=== PATIENT | male | born 1955 | race Caucasian/White ===

== ENCOUNTER → 2025-05-14 11:21 | Outpatient (REF) | payer SELFPAY | LOC: HWRAD 11:21 | PROVIDERS: ATTENDING PHYSICIAN Internal Medicine Geriatric Medicine | DX: Z00.00 Encounter for general adult medical examination without abnormal findings (principal); E55.9 Vitamin D deficiency, unspecified; E78.2 Mixed hyperlipidemia; K21.9 Gastro-esophageal reflux disease without esophagitis; J45.990 Exercise induced bronchospasm; R42 Dizziness and giddiness; R50.9 Fever, unspecified; R05.1 Acute cough; M25.511 Pain in right shoulder; F41.9 Anxiety disorder, unspecified; Z13.89 Encounter for screening for other disorder; R53.82 Chronic fatigue, unspecified | CPT/HCPCS: 75571 ==

== ENCOUNTER 2025-09-13 15:30 | Emergency (ER) | payer OTHER, SELFPAY ==
[2025-09-13 15:36] VITALS: BP 164/95
[2025-09-13 16:07] LABS: Hematocrit 43.8 % (39.0-52.0); Hemoglobin 15.3 g/dL (13.0-18.0); Mean Corp Hgb Conc. 34.9 g/dL (33.0-37.0); Mean Corpuscular Volume 88.3 fL (80.0-94.0); Nucleated Red Blood Cells % 0 % (-); Platelet Count 187 10^3/uL (130-400); Red Cell Dist. Width 11.9 % (11.5-14.5)
[2025-09-13 16:24] LABS: ALT (SGPT) 34 U/L (0-50); AST (SGOT) 36 U/L (17-59); Albumin 4.4 g/dl (3.5-5.0); Alkaline Phosphatase 67 U/L (38-126); Blood Urea Nitrogen 20 mg/dl (9-20); Calcium 9.3 mg/dl (8.4-10.2); Carbon Dioxide 26 mmol/L (22-30); Chloride 103 mmol/L (98-107); Glucose 83 mg/dl (70-99); Potassium 4.3 mmol/L (3.5-5.1); Sodium 137 mmol/L (135-145); Total Protein 6.8 g/dl (6.3-8.2); eGFR > 60.00
[2025-09-13 16:35] LABS: Troponin I 0.023 ng/ml
[2025-09-13 20:28] LABS: Troponin I 0.025 ng/ml
[2025-09-13 21:31] VITALS: BMI 30.9
[2025-09-13 21:32] VITALS: BP 159/89
--- NOTE | 2025-09-13 21:34 | ED.GENMED ---
History of Present Illness
General
Chief Complaint: Chest Pain
Source: patient
Exam Limitations: none
Time Seen by Provider: 09/13/25 21:17
History of Present Illness
History of Present Illness:
See MDM
Past History
Past History
ED Past Medical History: Asthma and Hypercholesterolemia
ED Past Surgical History: Other (ocular sx)
Social History
Tobacco: Non-smoker
Drug: None
Personal:
Living: with family
Phy Exam
Physical Exam
Physical Exam:
See MDM
Scores
Heart Score for Chest Pain Patients
STEMI patient?: No
History: Slightly or Non-Suspicious
ECG: Nonspecific Repolarization
Age: >/= 65 years
Risk Factors: 1 or 2 Risk Factors
Troponin: </= Normal Limit
Heart Score for Chest Pain Patients: 4
Heart Score Risk: 20.3% MACE over next 6 weeks
Course
Orders/Labs/Results
Orders:
Orders
09/13/25 15:31
Electrocardiogram (*1) Urgent
Reason for Study: Chest Pain
EKG- Treatment ONCE
09/13/25 15:49
CMP [Comprehensive Metabolic Panel] Urgent
Complete Blood Count/With Diff Urgent
Troponin I Urgent
09/13/25 19:55
ECG [Electrocardiogram (*1)] Urgent
Reason for Study: Chest Pain
EKG- Treatment ONCE
09/13/25 19:59
Troponin I Urgent
Abnormal Lab Results
09/13/25
15:49
Lymphocytes % 17.7 L %
(20.5-51.1)
09/13/25 15:49
09/13/25 15:49
Vital Signs
Initial and Last Documented VS:
Initial Vital Signs
Temp Pulse Resp BP Pulse Ox
97.9 F 67 16 164/95 96
09/13/25 15:36 09/13/25 15:36 09/13/25 15:36 09/13/25 15:36 09/13/25 15:36
Last Documented Vital Signs
Temp Pulse Resp BP Pulse Ox
97.9 F 59 18 159/89 96
09/13/25 15:36 09/13/25 21:32 09/13/25 21:32 09/13/25 21:32 09/13/25 21:32
MDM/Problems Addressed
Differential Diagnosis Includes:
Note:
CHIEF COMPLAINT(S)
Chest discomfort and elevated blood pressure.
HISTORY OF PRESENT ILLNESS
The patient is a 69-year-old male with a recent history of elevated blood pressure and intermittent chest discomfort described as a pressure sensation. He reports that while in the waiting room today, he experienced symptoms about a third of the
time which resolved upon lying down. He describes the discomfort as random and without a discernible pattern. The patient is physically active, engages in regular exercise, and recently shoveled snow without experiencing pain, although he did feel
dizzy after exertion, which resolved with rest. He noticed fluctuations in his blood pressure readings over the last few days ranging from 170/93 mmHg to 135/80 mmHg.
The patient denies any familial history of heart disease except for his father, who had heart issues at the age of 80. The patient follows a healthy lifestyle and exercises regularly.
PAST MEDICAL AND SURIGICAL HISTORY
The patient recalls seeing a warehouse representative five years ago for sinus surgery-related clearance without any subsequent cardiac issues.
CHRONIC MEDICAL CONDITIONS SIGNIFICANTLY AFFECTING CARE
- Elevated blood pressure.
PHYSICAL EXAM
General: Alert, no acute distress.
Skin: Warm, dry.
Head: Normocephalic, atraumatic
Neck: Appears supple, trachea midline.
Eyes, Ears, Nose, Mouth, and Throat: Moist mucous membranes
Cardiovascular: No signs of cyanosis. Regular rate and rhythm
Respiratory: Respirations are non-labored. Lungs clear
Abdomen: Non-distended
Musculoskeletal: No deformities. No leg edema
Neurological: No focal neurological deficit observed.
Psychiatric: Cooperative, appropriate mood and affect.
EXTERNAL RECORDS REVIEWED
- Previous blood work and EKG completed during this visit were normal.
PLAN
- Patient will be referred to a warehouse representative for follow-up due to the recent episode and elevated blood pressure readings.
- The patient was advised to continue monitoring his blood pressure and to maintain current lifestyle and exercise regimen unless symptoms worsen or become intolerable.
- He was placed on a cardiac callback tracker to expedite follow-up if needed.
DIFFERENTIAL DIAGNOSIS
The Differential Diagnosis includes, in no particular order and is not limited to:
- Musculoskeletal chest pain
- Unstable angina
- Hypertension-related complications
- Aortic stenosis
- Gastroesophageal reflux disease (GERD)
- Anxiety-related chest discomfort
- Myocardial ischemia
- Pericarditis
- Pulmonary embolism
- Costochondritis
SUMMARY OF ENCOUNTER
The patient presented to the emergency department with intermittent chest discomfort and concerns about fluctuating blood pressure. He underwent evaluation including EKGs and laboratory tests, which were normal. The symptoms were not consistent with
acute myocardial infarction. Due to the patients elevated blood pressure readings and history, follow-up with a warehouse representative was advised to ensure continuous monitoring and management.
DISPOSITION
Patient discharged with instructions for outpatient cardiology follow-up.
ASSESSMENT
Intermittent chest discomfort and elevated blood pressure necessitating further cardiology evaluation.
PATIENT EDUCATION AND COUNSELING
The patient was educated on maintaining physical activity and lifestyle management. He was reassured about the normal results from todays workup and advised to follow up with a warehouse representative.
FOLLOW-UP INSTRUCTIONS
- Follow-up with a warehouse representative as soon as possible.
- Continue monitoring blood pressure regularly.
MEDICAL DECISION MAKING
- Number and Complexity of Problems Addressed:
Chronic conditions affecting care include elevated blood pressure.
The differential diagnosis includes musculoskeletal chest pain, unstable angina, hypertension-related complications, aortic stenosis, gastroesophageal reflux disease, anxiety-related chest discomfort, myocardial ischemia, pericarditis, pulmonary
embolism, and costochondritis.
- Data:
Category 1:
- External records reviewed, including recent normal EKG and blood work results.
- Risk:
- Consideration of Admission/Observation: Escalation of care including admission/observation was considered given the complexity and risk of the patients presenting complaint, exam findings, and/or their underlying comorbidities. However, ultimately
I feel the patient is safe for outpatient management with close follow up. Reasoning: Work-up reassuring, does not reveal any acute life/organ threatening processes, patients symptoms well controlled upon reevaluation, reexamination is reassuring,
vitals are stable, patient agreeable with discharge, reliable for follow-up.
DIAGNOSIS
- Chest discomfort, R07.9
- Elevated blood pressure, R03.0
EKG
My independent EKG interpretation is:
- Time of EKG: Not specified
- Rhythm: Sinus bradycardia
- Heart Rate: 58 beats per minute
- [place]: Normal
- [place] Interval: Not specified
- QRS Duration: Not specified
- QT Interval: Not specified
- Abnormalities: None observed (no ST segment changes or T wave inversions)
(Note: Some details like the time, specific intervals, and notable abnormalities were not provided in the java web services developer.)
Disposition:
SUMMARY OF ENCOUNTER
The patient presented to the emergency department with intermittent chest discomfort experienced today. The discomfort appears random and non-exertional. The patient had engaged in shoveling snow a few days before, during which he had no chest pain
but did feel dizzy post-exertion, which resolved with rest. The patient underwent two negative troponin tests and two negative EKGs during a prolonged stay in the emergency department, indicating no acute myocardial infarction. He expressed comfort
with being discharged, and follow-up will be managed through a cardiac callback tracker.
DISPOSITION
Patient discharged with cardiac callback tracking for follow-up.
ASSESSMENT
Intermittent non-exertional chest discomfort with negative cardiac work-up.
PLAN
- Patient advised to continue monitoring and managing symptoms, seeking immediate care if they worsen or become intolerable.
- Referred for cardiology follow-up to ensure continuous monitoring and evaluation.
INDEPENDENT REVIEW OF LABS AND INTERPRETATION OF TESTS
- My independent review of troponin tests: Two negative results indicating no acute myocardial ischemia.
- My independent EKG interpretation: Two negative EKGs indicating no acute ST-T changes or myocardial ischemia.
PATIENT EDUCATION AND COUNSELING
The patient was counseled on symptoms monitoring and reassured with the negative results from current work-up. He was advised to maintain his exercise and healthy lifestyle unless instructed otherwise by his warehouse representative.
FOLLOW-UP INSTRUCTIONS
Follow up with a warehouse representative as soon as possible, and monitor symptoms.
MEDICAL DECISION MAKING
- Complexity of Data Reviewed: Chronic conditions affecting care include elevated blood pressure. Differential Diagnosis includes musculoskeletal chest pain, unstable angina, hypertension-related complications, aortic stenosis, gastroesophageal
reflux disease, anxiety-related chest discomfort, myocardial ischemia, pericarditis, pulmonary embolism, and costochondritis.
- Data:
Category 1:
- Non-emergency department records reviewed.
- External record reviewed show normal outpatient EKG and blood work.
Category 2:
- My independent interpretation of EKG: Sinus bradycardia, normal axis, no abnormalities detected.
- Risk:
- Consideration of Admission/Observation: Escalation of care including admission/observation was considered given the complexity and risk of the patients presenting complaint, exam findings, and their underlying comorbidities. However, ultimately I
feel the patient is safe for outpatient management with close follow up. Reasoning: Work-up reassuring, does not reveal any acute life/organ threatening processes, patients symptoms well controlled upon reevaluation, reexamination is reassuring,
vitals are stable, patient agreeable with discharge, reliable for follow-up.
DIAGNOSIS
- Chest discomfort, R07.9
- Elevated blood pressure, R03.0
*Pulse Oximetry
SaO2: 96
Oxygen Mode of Delivery: Room air
Patient hypoxic: no
*Critical Care Note
Total Time (30-74mins, 75-104mins- exclusive of procedures): Not Applicable
ED Attending Note
-
Portions of this chart may have been created with voice recognition software.� Occasional wrong word or��sound alike� substitutions may have occurred due to the inherent limitations of voice recognition software.
Discharge Plan
Departure
Patient Disposition: Home (Routine Discharge)
Date of Disposition: 09/13/25
Time of Disposition: 21:34
Patient with high blood pressure during this ER visit?: Yes
Discharge Problem:
Chest pain
Instructions: BLOOD PRESSURE, Chest Pain CBC Follow Up
Prescriptions:
No Action
simvastatin 20 MG tablet
20 mg PO QPM
omeprazole 20 MG capsule,delayed release(DR/EC)
20 mg PO QPM
montelukast 10 MG tablet
10 mg PO QPM
oxycodone-acetaminophen 5 MG/325 MG tablet
1 tab PO Q4HPRN PRN (Reason: pain not relieved by ibuprofen) Qty: 15 0RF
albuterol sulfate [Albuterol Sulfate HFA] 18 GM HFA aerosol inhaler
8.5 gm inhalation Q4HPRN PRN (Reason: shortness of breath, wheezing)
ibuprofen 200 MG tablet
600 mg PO QID Qty: 1 0RF
Rx Instructions:
take 4x/day (with meals and at bedtime) through Saturday night; thereafter take as needed
Referrals:
Ayden King MD [Family Provider, Internal Medicine]
Alexx Benjamin MD [Active, Cardiology]
Activity Restrictions/Additional Instructions:
Please return for any worsening symptoms.
You may return at any time if you have further concerns.
Please follow up with your doctor at the first available appointment, preferably this week.
You were placed on the cardiac callback tracker. Someone from their office should call you in the next few days. If you do not hear from them in the next few days, please give them a call.
Thank you for choosing [facility].
Interventions
Interventions:
*General Assessment Last Done: 09/13/25 21:32
*Neglect/Abuse Screening Last Done: 09/13/25 15:36
*ED COVID-19 Vaccine History Last Done: 09/13/25 21:32
*ED Influenza Vaccine History Last Done: 09/13/25 21:32
[facility] Fall Risk Assessment Tool Last Done: 09/13/25 21:35
*Risk Screen - Suicide (C-SSRS) Last Done: 09/13/25 21:32
ED- Cardiac Assessment Last Done: 09/13/25 21:33
Discharge Date and Time
Print Language: [id number]
== END 2025-09-13 21:48 | disposition home or self-care (01) ==
LOC: EMR 15:30
PROVIDERS: Emergency Medicine; Physician Assistant Medical; EMERGENCY PHYSICIAN Student in an Organized Health Care Education/Training Program; FAMILY PHYSICIAN Internal Medicine Geriatric Medicine
DX: R07.89 Other chest pain (principal); J45.909 Unspecified asthma, uncomplicated; E78.00 Pure hypercholesterolemia, unspecified
CPT/HCPCS: 99283; 80053; 84484; 85025; 93005